=== PATIENT | male | born 1995 | race Caucasian/White ===

== ENCOUNTER 2019-05-08 01:24 | Emergency (ER) | payer BC, SELFPAY ==
--- NOTE | ~2019-05-08 | XR_ITS ---
EXAMINATION: XR hand RT min 3V DATE: 05/08/2019 02:11 INDICATION: Right hand pain and swelling. Injury. TECHNIQUE: 3 views of right hand were obtained. COMPARISON: None. FINDINGS: There is an intra-articular fracture of dorsal base of fifth distal phalanx involving 50% o f the articular surface with less than 1 mm displacement. There is a nondisplaced chip fracture of me dial base of third distal phalanx. Joint spaces are normal. IMPRESSION: 1. Fractures of third and fifth distal phalanges. Reviewed, dictated and finalized at location A. [employer]
--- NOTE | ~2019-05-08 | CT_ITS ---
EXAMINATION: CT facial bones wo con DATE: 05/08/2019 01:59 INDICATION: Facial swelling. TECHNIQUE: Computed tomography (CT) of the facial bones and maxillofacial region was performed withou t intravenous contrast. Automated exposure control and iterative reconstruction technique were employ ed. The dose-length product was 313.37 mGy-cm. COMPARISON: None. FINDINGS: There is right periorbital and cheek soft tissue swelling. There are fractures of the nasal bones. The right nasal bone distal fracture fragment demonstrates 2 mm rightward displacement. There is a fracture of the anterior nasal septum. The main distal fracture fragment demonstrates impaction and rightward displacement. There is mild mucosal thickening and fluid in the maxillary sinuses. The re is a nondisplaced fracture of floor of right orbit. IMPRESSION: 1. Fractures of the nasal bones, nasal septum, and right orbital floor. Reviewed, dictated and finalized at location A. [employer] DEV[employer]
[2019-05-08 01:31] VITALS: BP 137/102; PULSE 107; RESP 16; TEMP 37; O2SAT 100
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
[2019-05-08] MEDS: IBUPROFEN 600 MG TABLET PO (02:50)
[2019-05-08 03:51] VITALS: BP 138/86; PULSE 96; RESP 18; TEMP 37; O2SAT 97
== END 2019-05-08 03:54 | disposition home or self-care (01) ==
PROVIDERS: Emergency Provider Emergency Medicine
DX: S02.31XA Fracture of orbital floor, right side, initial encounter for closed fracture (principal); S02.2XXA Fracture of nasal bones, initial encounter for closed fracture; S60.221A Contusion of right hand, initial encounter; Y04.2XXA Assault by strike against or bumped into by another person, initial encounter
CPT/HCPCS: 70486; 73130; 99284; A9270